=== PATIENT | female | born 1950 | race Caucasian/White ===

== ENCOUNTER 2018-07-26 12:02 | Inpatient (IN) ==
--- NOTE | 2018-07-26 11:52 | Discharge Summary ---
<Benjamín Castellano - Last Filed: 07/26/18 13:22> Date of Encounter: 07/26/18 - Discharge Diagnosis (1) Arthritis of right knee Priority: Primary Status: Chronic (2) Status post total right knee replacement Priority: Primary Status: Acute (3) Hypertension Priority: Secondary Status: Chronic Qualifiers: Hypertension type: unspecified Qualified Code(s): I10 - Essential (primary ) hypertension (4) Aortic stenosis Priority: Secondary Status: Chronic Qualifiers: Cardiac valve disease etiology: etiology unspecified Qualified Code(s): I35.0 - Nonrheumatic aortic (valve) stenosis (5) Hypothyroidism Priority: Secondary Status: Chronic Qualifiers: Hypothyroidism type: unspecified Qualified Code(s): E03.9 - Hypothyroidism , unspecified (6) Morbid obesity with BMI of 40.0-44.9, adult Priority: Secondary Status: Chronic - Hospital Course Hospital course: Ms. Oseguera is a 68 year old female - Time Spent with Patient Total time spent providing and/or coordinating discharge services: - Discharge Medications Home Medications: Acetaminophen/Butalbital/Caffe [Fioricet] 1 tab PO Q6HR PRN 07/26/18 [History] Alendronate Sodium [Fosamax] 70 mg PO JAEGER 07/26/18 [History] Aspirin Enteric Coated [Aspirin EC] 325 mg PO BID #20 tablet. 07/26/18 [Rx] Calcium Carbonate [Calcium] 500 mg PO DAILY 07/26/18 [History] Ergocalciferol (VITAMIN D2) [Vitamin D2] 50,000 unit PO JAEGER 07/26/18 [History] Famotidine [Pepcid] 40 mg PO DAILY 07/26/18 [History] Ferrous Sulfate 325 mg PO DAILY 07/26/18 [History] Furosemide [Lasix] 20 mg PO DAILY 07/26/18 [History] Levothyroxine [Synthroid] 50 mcg PO 0630 07/26/18 [History] OxyCODONE Immed Rel [Roxicodone 5 MG] 5 mg PO Q4HR PRN 5 Days #20 tablet [Rx] Vit A/Vit C/Vit E/Zinc/Copper [Preservision Areds Tablet] 1 tab PO DAILY [History] Allergies/Adverse Reactions: 3 Allergy/AdvReac Type Severity Reaction Status Date / Time codeine AdvReac Nausea Verified 07/26/18 12:33 Primary care physician: Toby Evans MD - Patient Status Disposition: Transfer SNF Condition: Good - Discharge Instructions Instructions: Total Knee Replacement (DC) Follow Up With: Sendy Sorto PAC [Physician Front Office Java Developer] - 08/02/18 2:45 pm Toby Evans MD [Primary Care Provider] - <Sendy Sorto - Last Filed: 07/30/18 12:33> Orders not resulted at time of discharge: Pending orders 07/26/18 12:49 US anesthesia pain block [US] Routine 07/26/18 15:34 Surgical Pathology [PTH] Routine Date of Encounter: 07/30/18 Time of Encounter: 12:27 - Discharge Diagnosis (1) Status post total right knee replacement Status: Acute (2) Arthritis of right knee Status: Chronic Comments: Opsite dressing, leave intact until first post-operative visit. If dressing becomes >50% saturated, contact office, remove dressing and place appropriate dressing in its place. Do not allow for dressing to get wet. Zipline/Chacorta in place, plan to remove at post-operative day #14-16. Total Joint Precautions x 6 weeks Apply cold therapy wrap 3-6x/day for 20 minutes at a time. Encourage ambulation throughout the day Use Incentive spirometer 10x/hour. Elevate affected extremity above heart as tolerated. Brace: Wear knee immobilizer at night x 2 weeks. (3) Hypertension Status: Chronic Qualifiers: Hypertension type: unspecified Qualified Code(s): I10 - Essential (primary ) hypertension (4) Hypothyroidism Status: Chronic Qualifiers: Hypothyroidism type: unspecified Qualified Code(s): E03.9 - Hypothyroidism , unspecified (5) Morbid obesity with BMI of 40.0-44.9, adult Status: Chronic (6) Aortic stenosis Status: Chronic Qualifiers: Cardiac valve disease etiology: etiology unspecified Qualified Code(s): I35.0 - Nonrheumatic aortic (valve) stenosis - Hospital Course Hospital course: Ms. Oseguera is a 68 year old female, s/p Right TKR. Patient had uneventful postoperative course. Stable for discharge. Patient seen at bedside this morning by , without complaints. A&O x . Nausea controlled with Zofran. Afebrile, vital signs stable. Low-grade temperature, never high than 99.4. Otherwise asymptomatic. Encouraged IS and breathing. Vital Signs Temp Pulse Resp BP Pulse Ox 07/30/18 11:30 99.2 F 82 18 131/63 93 07/30/18 07:14 99.4 F 78 20 112/70 94 07/29/18 20:00 95 07/29/18 18:23 99.2 F 81 16 116/68 95 Intake and Output 07/29/18 07/30/18 07/30/18 23:59 07:59 15:59 Intake Total 500 / 500 100 / 100 Output Total 400 / 400 Balance 100 / 100 100 / 100 Intake: Oral 500 / 500 100 / 100 Output: Urine 400 / 400 Other: Meal Breakfast Percent of Meal Consumed 50% . Labs reviewed. Last labs: 98 H/H - stable, asymptomatic Abnormal Labs 07/27/18 07/27/18 07/28/18 02:06 02:06 00:25 Hgb 11.2 L D 10.1 L Hct 32.0 L Sodium 135 L Creatinine 0.55 L BUN/Creatinine Ratio 31 H Glucose 179 H Calcium 07/28/18 00:25 Hgb Hct Sodium Creatinine BUN/Creatinine Ratio Glucose 154 H Calcium 8.5 L Pain control: adequate Participating in PT. All questions and concerns addressed. Educated on use of incentive spirometer. Encouraged ambulation and proper hydration. Patient educated on post-operative restrictions and post-operative care. Assessment and plan: Continue with postoperative care Discharge plan: ECF, discharge today - Time Spent with Patient Total time spent providing and/or coordinating discharge services: Date of admission: 07/27/18 11:55 Primary care physician: Toby Evans MD Consults: 07/26/18 17:06 Consult to Occupational Therapy [CONS] Routine Comment: Evaluate, develop and implement POC Reason for Consult: post knee surgery Does patient have active BEDREST order?: No Is patient medically & hemodynamically stable?: Yes Consult to Orthopedic Navigator [CONS] [CONS] Routine Consult to Physical Therapy [CONS] Routine Comment: Evaluate, develop and impliment POC Reason for Consult: post knee surgery Does patient have active BEDREST order?: No Is patient medically & hemodynamically stable?: Yes Consult to Aircraft Log Clerk [CONS] Routine Reason for SW Consult: post op joint replacement RT Post Op Consult [CONS] Routine 07/26/18 17:13 Consult to Pastoral Services [CONS] Routine Comment: Anticipated date of discharge: 07/30/18 - Impressions ITS Impressions Knee X-Ray 07/26/18 11:55 IMPRESSION: Status post right knee arthroplasty D/ / Kike Ferguson MD / Kike Ferguson MD Interpreting Provider: Kike Ferguson MD - Patient Status Functional capacity at discharge: uses cane/walker Overall status at discharge: patient is progressing back to baseline - Diet and Activity Activity: as per physical therapy Diet: advance to your usual diet
--- NOTE | 2018-07-26 12:12 | History & Physical Report ---
Date of Encounter: 07/26/18 Time of Encounter: 12:12 24 Hour HP Update - Instructions Instructions: If the History and Physical is less than 30 days old and was completed prior to A.M. admission and or procedure and has NOT been updated on calendar day of procedure please complete this update prior to performing procedure. - Update Patient reports changes in Medical Condition: No Changes in examination, assessment, or condition: No Changes in Medication: No Preop tests/diagnostics Reviewed: Yes Surgery Remains Indicated: Yes Consent for Planned Operative Procedure(s) Verified: Yes - Pre-Operative Checklist Preoperative Checklist Indicated: No Prophylactic Antibiotic Ordered: Yes Is VTE Prophylaxis Indicated?: Yes
[2018-07-26] MEDS ORDERED: ROPIVACAINE HCL/PF 0.5% 30 ML VIAL ONE (12:34)
--- NOTE | 2018-07-26 12:34 | Anesthesia Evaluation PreOp ---
Date of Encounter: 07/26/18 Time of Encounter: 12:31 - Past History Planned Operation: R TKA robotic Cardiac History: HTN, Other (aortic stenosis) Pulmonary History: Denies Any Significant HX LODGING FACILITIES MANAGER History: Denies Any Significant HX Other Medical History: Thyroid (hypo), GERD, Other (obesity BMI 43) Anesthesia History: No Prior Anesthetic Complications, Past Anesthesia ( hysterectomy) : No Alcohol Use: none Drug use: none Medications and Allergies Acetaminophen/Butalbital/Caffe [Fioricet] 1 tab PO Q6HR PRN 07/26/18 [History] Alendronate Sodium [Fosamax] 70 mg PO JAEGER 07/26/18 [History] Aspirin Enteric Coated [Aspirin EC] 325 mg PO BID #20 tablet. 07/26/18 [Rx] Aspirin Enteric Coated [Aspirin EC] 325 mg PO BID #20 tablet. 07/26/18 [Rx] Calcium Carbonate [Calcium] 500 mg PO DAILY 07/26/18 [History] Celecoxib [Celebrex] 400 mg PO DAILY 07/26/18 [History] Ergocalciferol (VITAMIN D2) [Vitamin D2] 50,000 unit PO JAEGER 07/26/18 [History] Famotidine [Pepcid] 40 mg PO DAILY 07/26/18 [History] Ferrous Sulfate 325 mg PO DAILY 07/26/18 [History] Furosemide [Lasix] 20 mg PO DAILY 07/26/18 [History] Levothyroxine [Synthroid] 50 mcg PO 0630 07/26/18 [History] OxyCODONE Immed Rel [Roxicodone 5 MG] 5 mg PO Q4HR PRN 5 Days #20 tablet [Rx] OxyCODONE Immed Rel [Roxicodone 5 MG] 5 mg PO Q4HR PRN 5 Days #20 tablet [Rx] Vit A/Vit C/Vit E/Zinc/Copper [Preservision Areds Tablet] 1 tab PO DAILY [History] 3 Allergy/AdvReac Type Severity Reaction Status Date / Time codeine AdvReac Nausea Verified 07/26/18 12:33 - Meds/Allergy Pre-op Review Medications Reviewed: Yes Allergies Reviewed: Yes Beta Blockers on Current Med List: No Anesthesia Results - Imaging EKG: report reviewed, image reviewed Additional studies: Echo 12/2017 moderate TR, EF 55%, aortic stenosis (poorly visualized) Anesthesia Exam Vital Signs/O2 Sat/Glucose, Most Recent Temp Pulse Resp BP Pulse Ox 98.7 F 63 18 150/83 95 07/26/18 12:17 07/26/18 12:17 07/26/18 12:17 07/26/18 12:17 07/26/18 12:17 Height: 1.55 m Weight: 104 kg BMI 53.5 NPO (# of Hours): > 8 hr - HEENT Pupil (Motor): Pupils equal Mallampati: II Teeth: Poor dentition Oral Opening: Greater than 3 - LODGING FACILITIES MANAGER LOC: Oriented LODGING FACILITIES MANAGER Motor: Normal RUE, Normal LUE, Normal RLE, Normal LLE, Normal Face LODGING FACILITIES MANAGER Sensory: Normal: RUE, LUE, RLE, LLE, Face - Cardiac Rhythm: Regular Murmur: Systolic - Pulmonary Breath Sounds: bilateral Clear Respiratory Effort: Symmetrical Anesthesia Assess/Plan ASA Score: 3 Modified Guerrero Scale for Level of Consciousness: Cooperative, oriented, and tranquil Anesthetic Plan: General, Regional (adductor IPACK) Monitoring Plan: Standard Monitors Recovery Plan: PACU
[2018-07-26] MEDS ORDERED: CeFAZolin Syr 2,000MG/20 ML 2,000 MG/20 ML SYRINGE IVPB ONE (12:36)
[2018-07-26] MEDS ORDERED: Albuterol 2.5 MG/3 ML NEBULIZER IH ONE (12:36)
[2018-07-26] MEDS ORDERED: Ringers Solution, Lactated 1,000 ML IVC SCH (12:45)
[2018-07-26] MEDS ORDERED: Acetaminophen IV 1,000 MG/100 ML INFUS..BTL IVPB ONE (12:45)
[2018-07-26] MEDS ORDERED: Gabapentin 300 MG CAPSULE PO ONE (12:45)
[2018-07-26] MEDS ORDERED: Famotidine 20 MG/2 ML VIAL IVP ONE (12:45)
[2018-07-26] MEDS ORDERED: *HR* FentaNYL (PF) 100 MCG/2 ML VIAL ONE (12:57)
[2018-07-26] MEDS ORDERED: *HR* Midazolam HCl 2 MG/2 ML VIAL ONE (12:57)
[2018-07-26] MEDS ORDERED: Dexamethasone 4 MG/ML VIAL ONE ×2 (13:02→14:04)
[2018-07-26] MEDS ORDERED: Ondansetron 4 MG/2 ML VIAL ONE ×2 (13:02→14:04)
[2018-07-26] MEDS ORDERED: *HR* Propofol 200 MG/20 ML VIAL IVP ONE ×2 (13:02→14:04)
[2018-07-26] MEDS ORDERED: Lidocaine -MPF 2% 2 ML VIAL ONE ×2 (13:02→14:04)
--- NOTE | 2018-07-26 13:39 | Anesthesia Procedures ---
Date of Encounter: 07/26/18 Time of Encounter: 13:11 Procedures: Anesthesia - Nerve Block Procedure Date: 07/26/18 Time: 13:11 Allergies/Adv Reactions: codeine Pre-op Diagnosis: R Knee Arthritis Surgical Procedure: R Robotic Knee Arthroplasty Checklist: Correct Patient Identifier, Correct procedure Correct side: Right Blood Thinner: No Monitor Applied: EKG, BP, Pulse Oximetry Supplemental Oxygen via Nasal Cannula (L/min): 2 Sedation: Versed (mg): 2 Sedation: Fentanyl (mcg): 50 Indication: Post Op Analgesia Pre-op Neuro Deficits: No Block Type: Other (IPACK, Adductor Canal Block, BOSSMAN) Catheter placed: No Sterile Technique: Yes Ultrasound used: Yes Anatomy identified: Yes Visual spread of Local: Yes Neuro Stimulation: No Blood on Needle Aspiration: No Smooth Injection of Local: Yes Pain with Injection of Local: No Prep: Chlorhexadine Needle: 21 x 100 mm Stimuplex Local: Ropivacaine (30mL 0.5% Ropi with 4mg decadron-Adductor, 20mL 0.25% Ropi with 4mg Decadron-IPACK, 10mL 0.25% Ropi for BOSSMAN) Number of Attempts: 1 Complications: None/effective block Vitals: Vital Signs/O2 Sat/Glucose, Most Recent Temp Pulse Resp BP Pulse Ox 98.7 F 63 18 150/83 95 07/26/18 12:17 07/26/18 12:17 07/26/18 12:52 07/26/18 12:17 07/26/18 12:52 Comments: VSS throughout procedure.
[2018-07-26] MEDS ORDERED: Ethanol\\Acetic Acid\\Na Ace\\Ben 1,000 ML IRRIG.SOLN IR ONE (14:03)
[2018-07-26] MEDS ORDERED: EPHEDrine 50 MG/ML VIAL ONE (14:37)
[2018-07-26] MEDS ORDERED: *HR* PHENYLEPHRINE 1,000 MCG/10 ML SYRINGE IVP ONE (14:37)
[2018-07-26] MEDS ORDERED: Ondansetron 4 MG/2 ML VIAL IVP ONE (15:00)
[2018-07-26] MEDS ORDERED: *HR* Meperidine 25 MG/ML SYRINGE IVP PRN (15:00)
[2018-07-26] MEDS ORDERED: *HR* Promethazine 25 MG/ML VIAL IVP PRN (15:00)
[2018-07-26] MEDS ORDERED: *HR* OxyCODONE Immed Rel 5 MG TABLET PO PRN (15:00)
--- NOTE | 2018-07-26 15:35 | Orthopedic Operative Note ---
Date of procedure: 07/26/18 Pre-op diagnosis: Right knee arthritis Post-op diagnosis: same Procedure: Procedure: Right robotic-assisted Total knee replacement Estimated blood loss: 200 cc Hardware: Metal and polyethylene replacement. [place] Femur: 3 Tibia: 3 TS insert: 11 Patella: 36 Exam Under anesthesia:Hyperextension 4 varus 6 degrees as calculated by the robot full flexion and no instability Procedural Notes:Grad 4 patella femoral and grade 3 medial compartment Operative procedure: The patient was brought to the operating room and placed on the operating room table. After general anesthesia was administered the operative knee was examined. Findings were noted in the exam under anesthesia. The operative extremity was prepped and draped in sterile surgical fashion. The patient received IV antibiotics prior to skin incision. A standard midline incision was made centered over the patella. The incision was made through the skin and subcutaneous tissue. A medial parapatellar tendon approach was performed. Care was taken to preserve tissue along the medial aspect of the patella. And to protect the patella tendon. The deep MCL was released off the medial tibia. The infra patella fat pad was excised. The patella was everted and cut was made at the level of the insertion of the quadriceps and patella tendon. The patella was sized to a 36the guide was seated and the lug holes are drilled. Knee was brought into flexion. Patient noted to have Steinmann pins were placed in the tibia and the femur for the tibial and femoral arrays respectively. Checkpoints were also placed in the tibia and the femur for calculation purposes. The knee including the femur and the tibial registered. Osteophytes, ACL and PCL were excised at this point. Extension and flexion were assessed with a valgus stress components were adjusted on the computer to balance the knee. Femoral cuts were made first with robotic assistance, these included the anterior cut posterior cuts chamfer cuts. Tibial cut was then performed with robotic assistance as well. Bone fragments were removed, as well as the medial and lateral meniscus. The size 3femoral guide was seated box cut was made lug holes are drilled. The size 3 tibial tray was seated and prepared with the fin cutter. Trial reduction with the 11 TS Kathe revealed extension of 0 degree and 2 varus degrees full flexion. No varus valgus instability. Trial reduction revealed excellent patella tracking. All trial components were removed all bony surfaces were irrigated. The Tibia was seated followed by the femur, The Kathe size 11 was seated and secured patella. Patient had similar findings for motion and stability. The knee was then irrigated out with 2 L of pulse irrigation. The extensor mechanism was closed with #2 FiberWire suture and #2 PDS suture. The subcutaneous tissue was then irrigated and closed deep with #1 PDS suture superficially with 0 PDS suture and skin was closed with ge zip tie The patient was then placed in a sterile dressing and a postoperative brace extubated and transferred to recovery room in stable condition. Anesthesia: GETA Surgeon: Benjamín Castellano Was there an behavioral health assistant present: No Estimated blood loss (cc): 200 Condition: stable Disposition: PACU
[2018-07-26] MEDS ORDERED: *HR* HYDROmorphone (PF) 1 MG/ML SYRINGE IVP ONE (16:14)
[2018-07-26 16:38] LABS: Hematocrit 42.3 % (35.3-44.9); Hemoglobin 13.5 g/dL (11.5-15.4)
[2018-07-26] MEDS ORDERED: Acetaminophen/Butalbital/CaffeineTABLET PO PRN (17:06)
[2018-07-26] MEDS ORDERED: MOM Conc 10 ML UD.LIQ PO PRN (17:06)
[2018-07-26] MEDS ORDERED: Temazepam 15 MG CAPSULE PO PRN (17:06)
[2018-07-26] MEDS ORDERED: Naloxone 0.4 MG/ML INJ IVP PRN (17:06)
[2018-07-26] MEDS ORDERED: Sennosides 8.6 MG TABLET PO PRN (17:06)
[2018-07-26] MEDS ORDERED: *HR* Enoxaparin 30 MG/0.3 ML SYRINGE SQ SCH (18:00)
[2018-07-26] MEDS: Ringers Solution, Lactated 1,000 ML IVC SCH (18:40)
[2018-07-26] MEDS: *HR* Enoxaparin 30 MG/0.3 ML SYRINGE SQ SCH (18:40)
--- NOTE | 2018-07-26 18:57 | Anesthesia Evaluation Post Op ---
Date of Encounter: 07/26/18 Time of Encounter: 17:35 - Vital Signs Vital Signs: Vital Signs/O2 Sat/Glucose, Most Recent Temp Pulse Resp BP Pulse Ox 98.3 F 84 13 138/89 95 07/26/18 16:43 07/26/18 16:43 07/26/18 16:43 07/26/18 16:43 07/26/18 16:43 - Lungs Lungs: Clear Ascult./Percussion - Airway Airway: Non-obstructed - Cardiovascular Regular Rate - Mental Status Mental Status: Alert & Oriented, Answers Appropriately - Pain Pain Scale: 7 (Pt states pain is decreasing after her pain medication) Pain Scale used: Numeric (1 - 10) - Nausea Vomiting Nausea Vomiting: Not Present - Hydration Hydration: Ice chips, Has not voided Notes: 07/26/18 18:56 Pt has fully recovered from anesthesia. Neuro exam intact and VSS. - Discharge PostOp Status: Transfer Patient to floor
[2018-07-26] MEDS: Ondansetron 4 MG/2 ML VIAL IVP PRN (22:54)
[2018-07-27] MEDS: *HR* OxyCODONE Immed Rel 5 MG TABLET PO PRN (02:27)
[2018-07-27 02:49] LABS: Hematocrit 35.7 % (35.3-44.9)
[2018-07-27 02:52] LABS: Hemoglobin 11.2 g/dL (11.5-15.4)
[2018-07-27 03:14] LABS: BUN/Creatinine Ratio 31 (6-26); Blood Urea Nitrogen 17 mg/dL (8-23); Carbon Dioxide 28 mEq/L (23-29); Chloride 101 mEq/L (98-107); Glucose 179 mg/dL (70-105); Osmolality,Calculated 286 (280-300); Potassium 4.6 mEq/L (3.5-5.1); Sodium 135 mEq/L (136-145); eGFR For Non-African Americans > 60 (> 60)
[2018-07-27] MEDS: *HR* Enoxaparin 30 MG/0.3 ML SYRINGE SQ SCH ×2 (05:47→18:28)
--- NOTE | 2018-07-27 06:39 | Orthopedics Progress Note ---
Date of Encounter: 07/27/18 Time of Encounter: 06:39 - Assessment and Plan (1) Arthritis of right knee Current Visit: No Status: Chronic (2) Status post total right knee replacement Current Visit: No Status: Acute (3) Hypertension Current Visit: Yes Status: Chronic Qualifiers: Hypertension type: unspecified Qualified Code(s): I10 - Essential (primary ) hypertension (4) Aortic stenosis Current Visit: Yes Status: Chronic Qualifiers: Cardiac valve disease etiology: etiology unspecified Qualified Code(s): I35.0 - Nonrheumatic aortic (valve) stenosis (5) Hypothyroidism Current Visit: Yes Status: Chronic Qualifiers: Hypothyroidism type: unspecified Qualified Code(s): E03.9 - Hypothyroidism , unspecified (6) Morbid obesity with BMI of 40.0-44.9, adult Current Visit: Yes Status: Chronic Subjective Interval history: Patient was seen this morning doing well without complaints. Afebrile vital signs stable. Operative extremity: Neurovascularly intact Dressing clean dry and intact Calves nontender Assessment and plan: Continue with postoperative care Hematocrit 35 patient unsafe to go home will be converted him patient to allow [facility] Objective Vital signs: Vital Signs Temp Pulse Resp BP Pulse Ox 07/26/18 22:58 98.7 F 69 16 113/70 93 07/26/18 19:55 99.0 F 70 14 120/75 95 07/26/18 18:40 97.5 F L 89 14 138/74 96 07/26/18 17:58 98 F 89 14 169/86 98 07/26/18 17:25 97.9 F 85 14 153/75 96 07/26/18 16:57 97.9 F 85 14 153/75 96 07/26/18 16:43 98.3 F 84 13 138/89 95 07/26/18 16:33 83 16 134/60 93 07/26/18 16:23 82 14 131/75 93 07/26/18 16:13 97.9 F 84 16 123/83 95 07/26/18 16:03 83 14 144/88 95 07/26/18 15:53 79 16 118/91 95 07/26/18 15:43 97.3 F L 88 24 142/75 93 07/26/18 13:54 64 143/73 97 07/26/18 13:22 66 171/76 98 07/26/18 12:52 18 95 07/26/18 12:17 98.7 F 63 18 150/83 95 Intake and Output 07/26/18 07/26/18 07/27/18 15:59 23:59 07:59 Intake Total 150 / 150 Output Total 200 / 200 150 / 150 Balance -200 / -200 0 / 0 Intake: IV Fluids 100 / 100 Ancef 2,000 MG In 0.9 % Sodium 100 / 100 Chloride 100 ML @ 200 mls/hr IVPB Q8H SUZY Rx#:[id number] Oral 50 / 50 Output: Urine 150 / 150 Estimated Blood Loss 200 / 200 Other: # Voids 1 1 Weight 104.326 kg - Labs CBC & BMP: 07/27/18 02:06 07/27/18 02:06 Labs: Abnormal lab results Hgb 11.2 g/dL (11.5-15.4) L D 07/27/18 02:06 Sodium 135 mEq/L (136-145) L 07/27/18 02:06 Creatinine 0.55 mg/dL (0.60-1.20) L 07/27/18 02:06 BUN/Creatinine Ratio 31 (6-26) H 07/27/18 02:06 Glucose 179 mg/dL (70-105) H 07/27/18 02:06 - VTE Documentation of Mechanical Device: Venous foot pump, device Consult Discharge Plan - Plan Referrals: Toby Evans MD [Primary Care Provider] - Prescriptions: Aspirin Enteric Coated [Aspirin EC] 325 mg PO BID #20 tablet.dr SierraCODONGiovanni Immed Rel [Roxicodone 5 MG] 5 mg PO Q4HR PRN 5 Days #20 tablet PRN Reason: Pain
[2018-07-27] MEDS: Famotidine 20 MG TABLET PO SCH (09:31)
[2018-07-27] MEDS: Furosemide 20 MG TABLET PO SCH (09:32)
[2018-07-27] MEDS: *HR* OxyCODONE/APAP 5/325 TABLET PO PRN (09:32)
[2018-07-27] MEDS: Ondansetron 4 MG/2 ML VIAL IVP PRN (11:22)
[2018-07-27] MEDS: Ringers Solution, Lactated 1,000 ML IVC SCH (11:23)
[2018-07-27] MEDS: traMADol 50 MG TABLET PO PRN ×2 (16:05→22:00)
--- NOTE | 2018-07-27 18:24 | Event Note ---
Date of Encounter: 07/27/18 Time of Encounter: 12:25 PCR - POD#1 s/p right TKR robotic 07/26/18 Patient seen at bedside, without complaints. A&O x 3 Afebrile, vital signs stable. Labs reviewed. H/H 11.2/35.7 - stable, asymptomatic, was hypotensive at 99/55 this morning which did improve to 117/65 Pain control: adequate Participating in PT. All questions and concerns addressed. Educated on use of incentive spirometer. Encouraged ambulation and proper hydration. Patient educated on post-operative restrictions and post-operative care. Assessment and plan: Continue with postoperative care Discharge plan: [facility], accepted to [facility] on 07/30/18.
--- NOTE | 2018-07-27 18:29 | Physician Discharge Referral ---
<Annette Oseguera - Last Filed: 07/27/18 18:27> ExtendedCare Referral Info Transfer To: [facility] Provider in Charge: Gray Huntley Diagnosis (1) Status post total right knee replacement Priority: Primary Status: Acute (2) Aortic stenosis Priority: Secondary Status: Chronic (3) Hypertension Priority: Secondary Status: Chronic (4) Hypothyroidism Priority: Secondary Status: Chronic (5) Morbid obesity with BMI of 40.0-44.9, adult Priority: Secondary Status: Chronic (6) Arthritis of right knee Priority: Secondary Status: Chronic Expected Duration of Placement: <30 days Prognosis: Good Aware of Diagnosis: Patient Aware of Prognosis: Patient - Transfer Medications Home Medications: Acetaminophen/Butalbital/Caffe [Fioricet] 1 tab PO Q6HR PRN 07/26/18 [History] Alendronate Sodium [Fosamax] 70 mg PO JAEGER 07/26/18 [History] Aspirin Enteric Coated [Aspirin EC] 325 mg PO BID #20 tablet. 07/26/18 [Rx] Calcium Carbonate [Calcium] 500 mg PO DAILY 07/26/18 [History] Celecoxib [Celebrex] 400 mg PO DAILY 07/26/18 [History] Ergocalciferol (VITAMIN D2) [Vitamin D2] 50,000 unit PO JAEGER 07/26/18 [History] Famotidine [Pepcid] 40 mg PO DAILY 07/26/18 [History] Ferrous Sulfate 325 mg PO DAILY 07/26/18 [History] Furosemide [Lasix] 20 mg PO DAILY 07/26/18 [History] Levothyroxine [Synthroid] 50 mcg PO 0630 07/26/18 [History] OxyCODONE Immed Rel [Roxicodone 5 MG] 5 mg PO Q4HR PRN 5 Days #20 tablet [Rx] Vit A/Vit C/Vit E/Zinc/Copper [Preservision Areds Tablet] 1 tab PO DAILY [History] Allergies/Adverse Reactions: 3 Allergy/AdvReac Type Severity Reaction Status Date / Time codeine AdvReac Nausea Verified 07/26/18 12:33 - Respiratory Orders Smoking Cessation: Smoking cessation has been advised. For more information, call the [place] Tobacco Quit Line at 9-792-IOYX-NOW. - Ancillary Orders May use pressure relief devices daily prn, May go on THERON w/family/respon green party w /meds at nurse discretion PRN, May consult with Dentist, Farm Consultant, Yoker Machine Operator PRN - Mobility Orders Chair, Ambulate - Rehabiliation Orders Rehab Potential: Good Rehab Orders: Evaluation for Physical Therapy, Evaluation for Occupational Therapy - Treatments Skin tear care topically daily PRN per policy List/Other: Opsite dressing, leave intact until first post-operative visit. If dressing becomes >50% saturated, contact office, remove dressing and place appropriate dressing in its place. Do not allow for dressing to get wet. Zipline/Chacorta in place, plan to remove at post-operative day #14-16. Total Joint Precautions x 6 weeks Apply cold therapy wrap 3-6x/day for 20 minutes at a time. Encourage ambulation throughout the day Use Incentive spirometer 10x/hour. Elevate affected extremity above heart as tolerated. Brace: Wear knee immobilizer at night x 2 weeks. - Diet Orders Regular CERTIFICATION: I certify that the transfer of the above named patient to an Extended Care Facility is necessary for the continuing treatment of the diagnosis listed. The above information is true and accurate reflection of patient's current condition. Confidential - Redisclosure prohibited without a patient's written consent. <Benjamín Castellano - Last Filed: 07/30/18 06:50> - Diagnosis (1) Arthritis of right knee Status: Chronic (2) Status post total right knee replacement Status: Acute (3) Hypertension Status: Chronic (4) Aortic stenosis Status: Chronic (5) Hypothyroidism Status: Chronic (6) Morbid obesity with BMI of 40.0-44.9, adult Status: Chronic - Respiratory Orders Smoking Cessation: Smoking cessation has been advised. For more information, call the [place] Tobacco Quit Line at 9-090-EQFI-NOW. CERTIFICATION: I certify that the transfer of the above named patient to an Extended Care Facility is necessary for the continuing treatment of the diagnosis listed. The above information is true and accurate reflection of patient's current condition. Confidential - Redisclosure prohibited without a patient's written consent.
[2018-07-28 00:56] LABS: Hemoglobin 10.1 g/dL (11.5-15.4)
[2018-07-28] MEDS: Ondansetron 4 MG/2 ML VIAL IVP PRN ×3 (01:08→15:06)
[2018-07-28 01:13] LABS: BUN/Creatinine Ratio 25 (6-26); Blood Urea Nitrogen 22 mg/dL (8-23); Calcium 8.5 mg/dL (8.6-10.3); Carbon Dioxide 29 mEq/L (23-29); Chloride 102 mEq/L (98-107); Glucose 154 mg/dL (70-105); Osmolality,Calculated 288 (280-300); Potassium 4.3 mEq/L (3.5-5.1); Sodium 136 mEq/L (136-145); eGFR For Non-African Americans > 60 (> 60)
[2018-07-28] MEDS: *HR* OxyCODONE/APAP 5/325 TABLET PO PRN ×4 (01:27→15:06)
[2018-07-28] MEDS: *HR* Enoxaparin 30 MG/0.3 ML SYRINGE SQ SCH ×2 (05:48→17:41)
[2018-07-28] MEDS: Furosemide 20 MG TABLET PO SCH (08:17)
[2018-07-28] MEDS: Famotidine 20 MG TABLET PO SCH (08:17)
--- NOTE | 2018-07-28 10:00 | Orthopedics Progress Note ---
Date of Encounter: 07/28/18 Time of Encounter: 09:59 Subjective Interval history: S: Resting in bed comfortably with no complaints O: Afebrile and vital signs are stable Right knee dressing is clean, dry, and intact Neurovascularly intact distally A: Right total knee arthroplasty P: Resume postoperative care Anticipate discharge to [facility] Monday Objective Vital signs: Vital Signs Temp Pulse Resp BP Pulse Ox 07/28/18 08:23 99 07/28/18 06:59 98.8 F 84 16 125/74 99 07/27/18 22:22 98.6 F 92 16 134/77 95 07/27/18 18:50 98.7 F 75 16 131/76 97 07/27/18 16:00 98.9 F 79 18 121/79 96 07/27/18 11:44 97.8 F 54 18 117/65 93 Intake and Output 07/27/18 07/28/18 07/28/18 23:59 07:59 15:59 Intake Total 100 / 100 50 / 50 Output Total 600 / 600 Balance 100 / 100 -550 / -550 Intake: Oral 100 / 100 50 / 50 Output: Urine 600 / 600 Other: # Voids 1 - Labs CBC & BMP: 07/28/18 00:25 07/28/18 00:25 Labs: Abnormal lab results Hgb 10.1 g/dL (11.5-15.4) L 07/28/18 00:25 Hct 32.0 % (35.3-44.9) L 07/28/18 00:25 Glucose 154 mg/dL (70-105) H 07/28/18 00:25 Calcium 8.5 mg/dL (8.6-10.3) L 07/28/18 00:25 - VTE Documentation of Mechanical Device: Venous foot pump, device Consult Discharge Plan - Plan Referrals: Toby Evans MD [Primary Care Provider] -
[2018-07-28] MEDS: traMADol 50 MG TABLET PO PRN (10:18)
[2018-07-28] MEDS: *HR* OxyCODONE Immed Rel 5 MG TABLET PO PRN (20:16)
[2018-07-29] MEDS: *HR* Enoxaparin 30 MG/0.3 ML SYRINGE SQ SCH ×2 (05:23→17:26)
[2018-07-29] MEDS: *HR* OxyCODONE/APAP 5/325 TABLET PO PRN (06:00)
[2018-07-29] MEDS: Ondansetron 4 MG/2 ML VIAL IVP PRN ×3 (06:00→18:56)
[2018-07-29] MEDS: Famotidine 20 MG TABLET PO SCH (09:13)
[2018-07-29] MEDS: Furosemide 20 MG TABLET PO SCH (09:14)
[2018-07-29] MEDS: Multivit/Ca/Min/Fe/FA 1 TAB TABLET PO SCH (09:14)
--- NOTE | 2018-07-29 09:44 | Orthopedics Progress Note ---
Date of Encounter: 07/29/18 Time of Encounter: 09:42 Subjective Interval history: S: Resting in bed comfortably Complains of nausea and vomiting and is asking for a clear liquid diet O: Afebrile and vital signs are stable Right knee dressing is clean, dry, and intact Neurovascularly intact distally A: Right total knee arthroplasty P: Resume postoperative care We will switch patient to a liquid diet for lunch and possibly go back to solids for dinner depending on her nausea level Anticipate discharge to [facility] Monday Objective Vital signs: Vital Signs Temp Pulse Resp BP Pulse Ox 07/29/18 07:22 99.1 F 76 16 119/71 92 07/28/18 23:37 98.7 F 90 16 134/77 93 07/28/18 20:24 99.1 F 84 16 136/62 93 07/28/18 20:15 94 07/28/18 15:36 99.7 F H 58 16 131/70 98 07/28/18 11:08 99.0 F 85 16 113/71 92 Intake and Output 07/28/18 07/29/18 07/29/18 23:59 07:59 15:59 Intake Total 200 / 200 500 / 500 Output Total 300 / 300 Balance -100 / -100 500 / 500 Intake: Oral 200 / 200 500 / 500 Output: Urine 300 / 300 Other: # Voids 1 - Labs CBC & BMP: 07/28/18 00:25 07/28/18 00:25 Labs: Abnormal lab results Hgb 10.1 g/dL (11.5-15.4) L 07/28/18 00:25 Hct 32.0 % (35.3-44.9) L 07/28/18 00:25 Glucose 154 mg/dL (70-105) H 07/28/18 00:25 Calcium 8.5 mg/dL (8.6-10.3) L 07/28/18 00:25 - VTE Documentation of Mechanical Device: Venous foot pump, device Consult Discharge Plan - Plan Referrals: Toby Evans MD [Primary Care Provider] -
[2018-07-29] MEDS: *HR* OxyCODONE Immed Rel 5 MG TABLET PO PRN ×2 (12:33→17:26)
[2018-07-29] MEDS ORDERED: NON-FORMULARY MEDICATION 1 EACH EACH (Alendronate Sodium [Fosamax] 70 MG) PO SCH (13:20)
[2018-07-30] MEDS: *HR* OxyCODONE Immed Rel 5 MG TABLET PO PRN ×2 (04:19→10:31)
[2018-07-30] MEDS: *HR* Enoxaparin 30 MG/0.3 ML SYRINGE SQ SCH (04:19)
[2018-07-30] MEDS: Ondansetron 4 MG/2 ML VIAL IVP PRN ×2 (04:26→10:30)
--- NOTE | 2018-07-30 06:51 | Orthopedics Progress Note ---
Date of Encounter: 07/30/18 Time of Encounter: 06:50 - Assessment and Plan (1) Arthritis of right knee Current Visit: No Status: Chronic (2) Status post total right knee replacement Current Visit: No Status: Acute (3) Hypertension Current Visit: Yes Status: Chronic Qualifiers: Hypertension type: unspecified Qualified Code(s): I10 - Essential (primary ) hypertension (4) Aortic stenosis Current Visit: Yes Status: Chronic Qualifiers: Cardiac valve disease etiology: etiology unspecified Qualified Code(s): I35.0 - Nonrheumatic aortic (valve) stenosis (5) Hypothyroidism Current Visit: Yes Status: Chronic Qualifiers: Hypothyroidism type: unspecified Qualified Code(s): E03.9 - Hypothyroidism , unspecified (6) Morbid obesity with BMI of 40.0-44.9, adult Current Visit: Yes Status: Chronic Subjective Interval history: Patient was seen this morning doing well without complaints. Afebrile vital signs stable. Operative extremity: Neurovascularly intact Dressing clean dry and intact Calves nontender Assessment and plan: Continue with postoperative care Discharged today Objective Vital signs: Vital Signs Temp Pulse Resp BP Pulse Ox 07/29/18 20:00 95 07/29/18 18:23 99.2 F 81 16 116/68 95 07/29/18 11:56 99.3 F 80 16 121/75 92 07/29/18 09:40 92 07/29/18 07:22 99.1 F 76 16 119/71 92 Intake and Output 07/29/18 07/29/18 07/30/18 15:59 23:59 07:59 Intake Total 120 / 120 500 / 500 Output Total 850 / 850 400 / 400 Balance -730 / -730 100 / 100 Intake: Oral 120 / 120 500 / 500 Output: Urine 850 / 850 400 / 400 Other: Meal Breakfast Percent of Meal Consumed 50% - Labs CBC & BMP: 07/28/18 00:25 07/28/18 00:25 Labs: Abnormal lab results Hgb 10.1 g/dL (11.5-15.4) L 07/28/18 00:25 Hct 32.0 % (35.3-44.9) L 07/28/18 00:25 Glucose 154 mg/dL (70-105) H 07/28/18 00:25 Calcium 8.5 mg/dL (8.6-10.3) L 07/28/18 00:25 - VTE Documentation of Mechanical Device: Venous foot pump, device Consult Discharge Plan - Plan Referrals: Toby Evans MD [Primary Care Provider] -
[2018-07-30] MEDS: Famotidine 20 MG TABLET PO SCH (07:43)
[2018-07-30] MEDS: Furosemide 20 MG TABLET PO SCH (07:44)
[2018-07-30] MEDS: Multivit/Ca/Min/Fe/FA 1 TAB TABLET PO SCH (07:47)
[2018-07-30 11:32] VITALS: BP 131/63
== END 2018-07-30 13:40 | DRG 470 ==
LOC: SAMDAY 12:02 → 3NENU 17:01
PROVIDERS: ADMIT Orthopaedic Surgery; ATTEND Orthopaedic Surgery